=== PATIENT | male | born 1990 | race African-American/Black ===

== ENCOUNTER 2020-04-29 14:23 | Emergency (ER) | payer OTHER ==
[~2020-04-29] VITALS: Ht 175.3 cm; Wt 88.4 kg
[2020-04-29 16:34] VITALS: BP 118/60
== END 2020-04-29 16:36 | disposition home or self-care (01) ==
LOC: ER 14:23
DX: Z03.818 Encounter for observation for suspected exposure to other biological agents ruled out (principal)
CPT/HCPCS: 71045; 99284; C9803; U0003